=== PATIENT | male | born 1945 | race American Indian/Alaskan Native ===

== ENCOUNTER 2017-03-15 11:57 | Emergency (ER) | payer MEDICARE, MEDICAID ==
[2017-03-15 12:39] LABS: BASO # 0.1 K/uL (0.0-0.2); BASO % 1.1 % (0.0-2.0); EOS # 0.3 K/uL (0.0-0.7); EOS % 5.2 % (0.0-4.0); HEMATOCRIT 36.7 % (35.0-51.0); LYMPH # 1.9 K/uL (1.0-4.3); LYMPH % 36.3 % (20.0-40.0); MEAN CELL VOLUME 88.2 fL (80.0-94.0); MEAN CORPUSCULAR HEMOGLOBIN 29.2 pg (27.0-31.0); MEAN CORPUSCULAR HGB CONC 33.1 g/dL (33.0-37.0); MEAN PLATELET VOLUME 8.3 fL (7.2-11.7); MONO # 0.5 K/uL (0.0-0.8); MONO % 10.2 % (0.0-10.0); NRBC % 0.1 % (0.0-2.0); WHITE BLOOD COUNT 5.3 K/uL (4.8-10.8)
[2017-03-15 12:46] LABS: VENOUS BLOOD GAS BASE EXCESS 2.9 mmol/L (0.0-2.0); VENOUS BLOOD GAS PCO2 54 mmHg (40-60); VENOUS BLOOD PH 7.35 (7.32-7.43)
[2017-03-15 13:16] LABS: CHLORIDE 100 mmol/L (98-107); POTASSIUM 4.4 mmol/L (3.6-5.2); SODIUM 137 mmol/L (132-148)
[2017-03-15 13:18] LABS: BILIRUBIN,TOTAL 0.6 mg/dL (0.2-1.3); CARBON DIOXIDE 25 mmol/L (22-30); GFR AFRICAN-AMERICAN > 60
[2017-03-15 13:19] LABS: ALB/GLOB RATIO 0.9 (1.0-2.1); ALKALINE PHOSPHATASE 63 U/L (38-126); ALT/SGPT 23 U/L (21-72); AST/SGOT 17 U/L (17-59); BLOOD UREA NITROGEN 18 mg/dL (9-20); CALCIUM 8.2 mg/dl (8.6-10.4); GLUCOSE,RANDOM 86 mg/dL (75-110)
--- NOTE | 2017-03-15 13:46 | RAD ---
PROCEDURE: CHEST RADIOGRAPH, 1 VIEW HISTORY: SOB COMPARISON: 06/09/2016. FINDINGS: LUNGS: The lungs are clear. PLEURA: No pneumothorax or pleural fluid seen. CARDIOVASCULAR: Normal. OSSEOUS STRUCTURES: No significant abnormalities. VISUALIZED UPPER ABDOMEN: Normal. OTHER FINDINGS: None. IMPRESSION: No active pulmonary disease.
--- NOTE | 2017-03-15 13:51 | C.PDOC ---
History Of Present Illness Patient with PMHX of CVA with residual hemiparesis, hemiplegia & aphasia, HTN, seizure disorder, pneumonia sent from [place] for evaluation of "shortness of breath ". CXR done on 03/05 showed infiltrate left lung base, patient has been on PO Levaquin from 03/07-. Patient arrives to ED in no apparent distress, denies pain/SOB when asked. Time Seen by Provider: 03/15/17 11:58 Chief Complaint (Nursing): Shortness Of Breath History Per: EMS, Other ([facility] records) History/Exam Limitations: clinical condition Onset/Duration Of Symptoms: Unknown Initiating Event: Upper Respiratory Illness (recent pneumonia, s/p PO Levaquin) Past Medical History Reviewed: Historical Data, Nursing Documentation, Vital Signs Vital Signs: Last Vital Signs Temp 97.9 F 03/15/17 16:50 Pulse 54 L 03/15/17 16:50 Resp 18 03/15/17 16:50 BP 123/90 03/15/17 16:50 Pulse Ox 100 03/15/17 16:50 - Medical History PMH: Cardiac Aneurysm (aortic), Dementia, HTN, Pneumonia, Seizures Surgical History: - [facility] Procedures CYSTOGRAM NEC (07/21/14) CYSTOMETROGRAM (07/21/14) Family History: States: No Known Family Hx - Social History Hx Tobacco Use: No Hx Alcohol Use: No Hx Substance Use: No - Immunization History Hx Tetanus Toxoid Vaccination: Yes Hx Influenza Vaccination: Yes Hx Pneumococcal Vaccination: Yes Review Of Systems Review Of Systems: ROS cannot be obtained secondary to pt's inabilty to answer questions. Physical Exam - Physical Exam Appears: Well, Non-toxic, No Acute Distress Skin: Normal Color, Warm, Dry, No Rash Oral Mucosa: Moist Cardiovascular: Rhythm Regular (mildly bradycardia ) Respiratory: Normal Breath Sounds, No Accessory Muscle Use, No Rales, No Rhonchi , No Stridor, No Wheezing, Other ((+) occasional coughing & transitted upper airway noise) Gastrointestinal/Abdominal: Normal Exam, Bowel Sounds, Soft, No Tenderness Extremity: Normal ROM, No Pedal Edema, No Calf Tenderness Pulses: Left Dorsalis Pedis: Normal, Right Dorsalis Pedis: Normal ED Course And Treatment - Laboratory Results Result Diagrams: 03/15/17 12:35 03/15/17 12:46 ECG: Interpreted By Me, Viewed By Me (sinus bradycardia 52 bpm, normal axis, PACs, no acute ST/T wave changes) ECG Interpretation: No Acute Changes O2 Sat by Pulse Oximetry: 100 (RA) Pulse Ox Interpretation: Normal - Other Rad cxr X-Ray: Viewed By Me, Read By Radiologist Interpretation: Accession No. : [id number]. Patient Name / ID : DANK [id number] / [id number]. Exam Date : 03/15/2017 12:43:41 ( Approved ). Study Comment : Sex / Age : M / [id number]. Creator : BETH GARCIA MD. Dictator : BETH GARCIA MD. Rental Boats Caretaker : Manufacturing Engineering Technician : BETH GARCIA MD. Approver2 : Report Date : 03/15/2017 13:45:22. My Comment : . PROCEDURE: CHEST RADIOGRAPH, 1 VIEW. HISTORY: SOB. COMPARISON: 06/09/2016. FINDINGS: LUNGS: The lungs are clear. PLEURA: No pneumothorax or pleural fluid seen. CARDIOVASCULAR: Normal. OSSEOUS STRUCTURES: No significant abnormalities. VISUALIZED UPPER ABDOMEN: Normal. OTHER FINDINGS: None. IMPRESSION: No active pulmonary disease. Progress Note: Blood work, UA, CXR, EKG ordered and reviewed. Reevaluation Time: 14:45 Reassessment Condition: Improved (Patient reassessed, is resting comfortably, in distress. Blood work, CXR, UA, EKG unremarkable. Patient is well appearing , at his baseline, with normal vitals (except mild bradycardia, on beta parker) . No evidence of pneumonia on CXR. Discussed patient with PMD Dr. Abby Noel, who agrees with patient being discharged back to [facility] at this time.) Disposition Counseled Patient/Family Regarding: Studies Performed, Diagnosis, Need For Followup - Disposition Referrals: Carole Noel MD [Staff Provider] - Disposition: TRANSF TO [facility] Disposition Time: 14:45 Condition: STABLE Additional Instructions: FOLLOW UP WITH DR NOEL IN 1-2 DAYS RETURN TO ER IF YOU HAVE ANY CONCERNING SYMPTOMS Prescriptions: Benzonatate [Tessalon Perles] 100 mg PO BID PRN #15 sgl PRN Reason: Cough Instructions: Acute Cough (ED) Forms: [facility] (Emirati), General Discharge Instructions Print Language: MONTSERRATIAN - POA Present On Arrival: None - Clinical Impression Clinical Impression: Evaluation by medical service required, Cough
[2017-03-15 14:08] LABS: RBC URINE 2 /hpf (0-3); URINE BILIRUBIN NEGATIVE (NEGATIVE); URINE BLOOD NEGATIVE (NEGATIVE); URINE COLOR Yellow (YELLOW); URINE GLUCOSE (UA) NORMAL (Normal); URINE KETONE NEGATIVE (NEGATIVE); URINE LEUKOCYTE ESTERASE NEG Leu/uL (Negative); URINE PROTEIN NEGATIVE (NEGATIVE); URINE UROBILINOGEN NORMAL mg/dL (0.2-1.0); WBC URINE 2 /hpf (0-5)
[2017-03-15 14:10] VITALS: PULSE 54
[2017-03-15 14:46] VITALS: O2SAT 100
[2017-03-15 16:51] VITALS: BP 123/90; RESP 18; TEMP 97.9
--- NOTE | 2017-03-16 13:52 | CARD ---
APPROVED REPORT EKG Measurement Heart [id number] <Conclusion> Sinus bradycardia with premature atrial complexes Otherwise normal ECG
== END 2017-03-15 17:17 ==
LOC: C.ER 11:57
DX: Z00.00 Encounter for general adult medical examination without abnormal findings (principal); I10 Essential (primary) hypertension; I69.959 Hemiplegia and hemiparesis following unspecified cerebrovascular disease affecting unspecified side

== ENCOUNTER 2018-09-30 21:36 | Emergency (ER) | payer MEDICARE, MEDICAID ==
--- NOTE | 2018-09-30 22:04 | C.PDOC ---
History Of Present Illness Patient brought in from [facility] after he slid off his wheel chair onto his left side. Denies LOC or pain. Patient has right hemiplegia from previous CVA, able to enunciate few words. Time Seen by Provider: 09/30/18 22:03 Chief Complaint (Nursing): Trauma History Per: Patient History/Exam Limitations: no limitations Onset/Duration Of Symptoms: Hrs Current Symptoms Are (Timing): Still Present Severity: Moderate Pain Scale Rating Of: 4 Additional History Per: [facility] Past Medical History Reviewed: Historical Data, Nursing Documentation, Vital Signs Vital Signs: Last Vital Signs Temp 98.0 F 09/30/18 21:48 Pulse 68 09/30/18 21:48 Resp 16 09/30/18 21:48 BP 104/76 09/30/18 21:48 Pulse Ox 100 09/30/18 21:48 - Medical History PMH: Cardiac Aneurysm (aortic), Dementia, HTN, Pneumonia, Seizures Denies: Chronic Kidney Disease Surgical History: - [facility] Procedures CYSTOGRAM NEC (07/21/14) CYSTOMETROGRAM (07/21/14) Family History: States: Unknown Family Hx - Social History Hx Tobacco Use: No Hx Alcohol Use: No Hx Substance Use: No - Immunization History Hx Tetanus Toxoid Vaccination: Yes Hx Influenza Vaccination: Yes Hx Pneumococcal Vaccination: Yes Review Of Systems Constitutional: Negative for: Fever, Chills Cardiovascular: Negative for: Chest Pain, Palpitations Respiratory: Negative for: Cough, Shortness of Breath Gastrointestinal: Negative for: Nausea, Vomiting Neurological: Positive for: Other (No LOC, right hemiplegia from previous CVA) Physical Exam - Physical Exam Appears: Non-toxic Skin: Warm, Dry Head: Normacephalic Oral Mucosa: Moist Neck: Trachea Midline, No Midline Cervical Tenderness, No Paracervical Tenderness, Supple Chest: Symmetrical, No Tenderness Cardiovascular: Rhythm Regular Respiratory: No Rales, No Rhonchi, No Wheezing Gastrointestinal/Abdominal: Soft, No Tenderness Back: No Vertebral Tenderness, No Paraspinal Tenderness Extremity: Other (Able to move left arm and left leg, no evidence of hip fracture. Right arm contracted.) Pulses: Left Radial: Normal, Right Radial: Normal, Left Dorsalis Pedis: Normal, Right Dorsalis Pedis: Normal Neurological/Psych: Oriented x3 ED Course And Treatment O2 Sat by Pulse Oximetry: 100 (Room air) Pulse Ox Interpretation: Normal Progress Note: CT head and CT lumbar spine ordered. Reevaluation Time: 00:39 Reassessment Condition: Improved Disposition Counseled Patient/Family Regarding: Studies Performed, Diagnosis, Need For Followup - Disposition Referrals: Carole Noel MD [Staff Provider] - Disposition: HOME/ ROUTINE Disposition Time: 22:04 Condition: FAIR Instructions: Contusion (DC) Forms: [employer] (Mozambican) - Clinical Impression Clinical Impression: Fall, Contusion - Scribe Statement The provider has reviewed the documentation as recorded by the Scribbill Khanna All medical record entries made by the Scribe were at my direction and personally dictated by me. I have reviewed the chart and agree that the record accurately reflects my personal performance of the history, physical exam, medical decision making, and the department course for this patient. I have also personally directed, reviewed, and agree with the discharge instructions and disposition.
[2018-10-01 01:23] VITALS: BP 119/76; PULSE 70; RESP 18; TEMP 97.4; O2SAT 98
--- NOTE | 2018-10-01 07:03 | CT ---
Date of service: 09/30/2018 PROCEDURE: CT HEAD WITHOUT CONTRAST. HISTORY: fall, history of stroke right hemiplegia COMPARISON: 06/06/2016 TECHNIQUE: Axial computed tomography images were obtained through the head/brain without intravenous contrast. Radiation dose: Total exam DLP = 991.02 mGy-cm. This CT exam was performed using one or more of the following dose reduction techniques: Automated exposure control, adjustment of the mA and/or kV according to patient size, and/or use of iterative reconstruction technique. FINDINGS: HEMORRHAGE: No intracranial hemorrhage. BRAIN: No mass effect or edema. Scattered focal lucencies in the subcortical and periventricular white matter suggestive for chronic microvascular ischemic change. Large confluent areas of low attenuation seen within the posterior left parieto-occipital region as well as occupying a large portion of the cerebellum suggestive for encephalomalacia from large chronic infarcts. Correlation with diffusion-weighted MRI would be helpful for further evaluation if clinically indicated. Diffuse generalized parenchymal atrophy. Bilateral basal ganglia lacunar infarcts. VENTRICLES: Prominent ventricles suggestive for diffuse generalized parenchymal atrophy. 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 PARANASAL SINUSES: Unremarkable as visualized. No significant inflammatory changes. MASTOID AIR CELLS: Unremarkable as visualized. No inflammatory changes. OTHER FINDINGS: Intracranial arterial calcifications. IMPRESSION: No acute intracranial abnormality. Moderate diffuse cerebral and cerebellar atrophy. Severe chronic microvascular ischemic changes. Large chronic infarcts with encephalomalacia in the left parieto-occipital region and left cerebellum. Old bilateral basal ganglia lacunar infarcts. Additional findings as above. If symptoms persists, consider correlation with MRI. A preliminary report was generated at 10:57 p.m. on 09/30/[address] Corky Robles from [employer].
--- NOTE | 2018-10-01 10:40 | CT ---
Date of service: 09/30/2018 PROCEDURE: CT Lumbar Spine without contrast HISTORY: Fall COMPARISON: CT from 05/12/2014. TECHNIQUE: Axial computed tomography images were obtained of the lumbar spine without the use of intravenous contrast. Coronal and sagittal reformatted images were created and reviewed. Radiation dose: Total exam DLP = 1183.56 mGy-cm. This CT exam was performed using one or more of the following dose reduction techniques: Automated exposure control, adjustment of the mA and/or kV according to patient size, and/or use of iterative reconstruction technique. FINDINGS: VERTEBRAE: There is normal alignment of the lumbar vertebral bodies. There is normal lumbar lordosis. There is diffuse demineralization. There is an the old superior endplate compression fracture deformity in the L1 vertebral body with approximately 30% loss of anterior vertebral height. No evidence for retropulsion. Evaluation of the spinal canal and conus medullaris is limited on noncontrast CT examination. Allowing for this, no epidural hematoma or spinal canal stenosis. DISCS/SPINAL CANAL/NEURAL FORAMINA: L1-2: No large disc herniation, neural foraminal or spinal canal stenosis. L2-3: Mild posterior disc bulge without central spinal canal stenosis. No neural foraminal narrowing. L3-4: Diffuse posterior disc bulge indents the ventral thecal sac without central spinal canal stenosis. Mild bilateral facet arthropathy contribute to mild neural foraminal narrowing. L4-5: Diffuse posterior disc bulge and moderate ligamentum flavum infolding without central spinal canal stenosis. Moderate bilateral facet arthropathy contribute to moderate neural foraminal narrowing. L5-S1: Diffuse posterior disc bulge and mild ligamentum flavum infolding without central spinal canal stenosis. Mild bilateral facet arthropathy contribute to moderate to severe neural foraminal narrowing. PARASPINAL SOFT TISSUES: Unremarkable. OTHER FINDINGS: None. IMPRESSION: 1. No acute fracture. 2. Old superior endplate compression deformity in the L1 vertebral body without retropulsion. 3. Mild multilevel degenerative disc disease, worse at L4-5 without significant central spinal canal stenosis. A preliminary report was provided by [employer].
== END 2018-10-01 01:38 ==
LOC: C.ER 21:36
DX: T14.8XXA Other injury of unspecified body region, initial encounter (principal); W05.0XXA Fall from non-moving wheelchair, initial encounter; F03.90 Unspecified dementia, unspecified severity, without behavioral disturbance, psychotic disturbance, mood disturbance, and anxiety; I10 Essential (primary) hypertension